=== PATIENT | female | born 1930 | race Two or more races ===

== ENCOUNTER → 2016-09-06 | Outpatient (CLI) | payer MEDICARE, MEDICAID ==
--- NOTE | 2016-09-10 07:35 | EEG PRO FEE REPORT ---
EEG INTERPRETATION PATIENT NAME: GLENDA WASHINGTON ROOM#: ORDER#: [id number] DATE OF STUDY: 09/06/16 : 1930 REFERRING MD: ANTONIA ALEXIS M.D. DIAGNOSIS: Epilepsy REPORT This is a 16 channel EEG recording with a channel of EKG. This is done during wakefulness, photic stimulation, and early stages of sleep. The background activity is 7.5-8 cycles per second, well formed and reactive alpha best seen in the posterior electrodes along with beta 18-22 cycles per second, intermittent, nonlocalized or sustained slower forms. Moderate muscle movement and eye movement and EKG artifact seen. Photic stimulation did not alter the tracing significantly. In the early stages of sleep, more generalized slowing is seen. IMPRESSION This EEG is within normal limits. INTERPRETING PHYSICIAN: MOLINA CRONIN M.D. /: SHERRYUD TT: [id number] ID: [id number] /: [id number] TD: [id number] JOB: [id number] cc:Ledy WADSWORTH M.D. >
== END ==
LOC: NEURO 12:40
PROVIDERS: ATTEND Family Medicine
DX: G40.309 Generalized idiopathic epilepsy and epileptic syndromes, not intractable, without status epilepticus (principal)
CPT/HCPCS: 95819